=== PATIENT | female | born 1985 | race Hispanic/Latino ===

== ENCOUNTER 2021-01-09 13:21 | Emergency (ER) | payer OTHER, SELFPAY ==
[2021-01-09] MEDS ORDERED: Dexamethasone 10 MG/ML VIAL ONE (14:20)
== END 2021-01-09 16:15 | disposition home or self-care (01) ==
LOC: BURERS 13:21
DX: U07.1 COVID-19 (principal); J45.909 Unspecified asthma, uncomplicated
CPT/HCPCS: 71045; 96372; J1100; J7620